=== PATIENT | female | born 1975 | race Caucasian/White ===

== ENCOUNTER 2016-10-20 06:34 | Emergency (ER) | payer OTHER ==
[2016-10-20 06:55] VITALS: BP 120/69; RESP 18; TEMP 98.9; O2SAT 100
--- NOTE | 2016-10-20 07:08 | ED PDOC ---
HPI: CCC, URI, Sore Throat Time Seen by Provider: 10/20/16 07:01 Chief Complaint (Nursing): Fever Chief Complaint (Provider): Fever History Per: Patient History/Exam Limitations: no limitations Onset/Duration Of Symptoms: Days (x1) Current Symptoms Are (Timing): Still Present Location Of Pain: Throat Associated Symptoms: Fever, Sore Throat, Cough. denies: Sputum Severity: Mild Additional Complaint(s): patient is a 41 year old female presenting to the ED complaining of fever since yesterday. Fever is associated with sore throat and non-productive cough. Patient reports she is able to swallow without difficulty. PMD: none Past Medical History Reviewed: Historical Data, Nursing Documentation, Vital Signs Vital Signs: Last Vital Signs Temp 98.9 F 10/20/16 08:04 Pulse 89 10/20/16 08:04 Resp 18 10/20/16 06:51 BP 120/69 10/20/16 06:51 Pulse Ox 100 10/20/16 08:04 - Medical History PMH: No Chronic Diseases - Surgical History Surgical History: No Surg Hx - Family History Family History: States: No Known Family Hx - Immunization History Hx Tetanus Toxoid Vaccination: No - Home Medications Home Medications: Ambulatory Orders Medication Instructions Recorded Naproxen [Naprosyn] 250 mg PO BID PRN #20 tab 03/09/15 Azithromycin [Zithromax] 250 mg PO DAILY #6 tab 10/20/16 - Allergies Allergies/Adverse Reactions: Allergies Allergy/AdvReac Type Severity Reaction Status Date / Time Penicillins Allergy ANAPHYLAXIS Verified 10/20/16 06:51 shellfish derived Allergy ANAPHYLAXIS Verified 10/20/16 06:51 Review of Systems ROS Statement: Except As Marked, All Systems Reviewed And Found Negative Constitutional: Positive for: Fever ENT: Positive for: Throat Pain Respiratory: Positive for: Cough. Negative for: Sputum Physical Exam - Reviewed Nursing Documentation Reviewed: Yes Vital Signs Reviewed: Yes - Physical Exam Appears: Positive for: Well, Non-toxic, No Acute Distress Head Exam: Positive for: ATRAUMATIC, NORMAL INSPECTION, NORMOCEPHALIC Skin: Positive for: Normal Color, Warm, DRY Eye Exam: Positive for: Normal appearance, EOMI ENT: Positive for: Pharyngeal Erythema, Tonsillar Swelling. Negative for: Tonsillar Exudate Neck: Positive for: Normal, Painless ROM, Supple Cardiovascular/Chest: Positive for: Regular Rate, Rhythm. Negative for: Gallop , Murmur Respiratory: Positive for: Normal Breath Sounds. Negative for: Accessory Muscle Use, Rhonchi, Respiratory Distress Extremity: Positive for: Normal ROM Neurologic/Psych: Positive for: Alert, Oriented - ECG O2 Sat by Pulse Oximetry: 100 (RA) Pulse Ox Interpretation: Normal Medical Decision Making Medical Decision Making: Time: 7:05 Impression: 41 y/o F w/ fever, sore throat, and cough Plan: Rapid Strep Group A Antigen Scribe Attestation: Documented by Sherie Marshall acting as a scribe for Kareem Corea MD. Scribe Attestation: All medical record entries made by the Scribe were at my direction and personally dictated by me. I have reviewed the chart and agree that the record accurately reflects my personal performance of the history, physical exam, medical decision making, and the department course for this patient. I have also personally directed, reviewed, and agree with the discharge instructions and disposition. Disposition - Clinical Impression Clinical Impression: Tonsillitis - Patient ED Disposition Is Patient to be Admitted: No - Disposition Referrals: [facility] [Outside] Disposition: Routine/Home Disposition Time: 07:10 Condition: FAIR Prescriptions: Azithromycin [Zithromax] 250 mg PO DAILY #6 tab Instructions: Tonsillitis (ED)
[2016-10-20 08:04] VITALS: PULSE 89
== END 2016-10-20 08:05 | disposition home or self-care (01) ==
LOC: H.ER 06:34
DX: J03.90 Acute tonsillitis, unspecified (principal); R05 Cough

== ENCOUNTER 2017-05-21 12:09 | Emergency (ER) | payer OTHER ==
[2017-05-21 12:53] VITALS: TEMP 98; O2SAT 100
--- NOTE | 2017-05-21 13:20 | ED PDOC ---
HPI: Female Pain Time Seen by Provider: 05/21/17 12:57 Chief Complaint (Nursing): Female Genitourinary Chief Complaint (Provider): Vaginal Bleeding History Per: Patient History/Exam Limitations: no limitations Onset/Duration Of Symptoms: Days (x 2 weeks) Current Symptoms Are (Timing): Still Present Additional Complaint(s): Eusebia is a 42 y/o female with a past medical history of hypertension who presents to the ED c/o vaginal bleeding for the past 2 weeks without stopping. Patient states her period is usually heavy but never this bad, and she is using 8-10 pads per day with associated cramps and weakness. She hasn't seen a senior clinical data analyst in 3 years and called someone today to be seen but they told her to come to the ER. Patient is having some lower abdominal discomfort but denies fever, chills, or urinary symptoms. PMD: Dr. Bales Abnormal Vaginal Bleeding: Yes Past Medical History Reviewed: Historical Data, Nursing Documentation, Vital Signs Vital Signs: Last Vital Signs Temp 98.0 F 05/21/17 12:47 Pulse 73 05/21/17 12:47 Resp 20 05/21/17 12:47 BP 146/68 05/21/17 12:47 Pulse Ox 100 05/21/17 12:47 - Medical History PMH: HTN - Surgical History Surgical History: - Family History Family History: States: No Known Family Hx - Social History Current smoker - smoking cessation education provided: No Ex-Smoker (has not smoked in the last 12 months): No Alcohol: None - Immunization History Hx Tetanus Toxoid Vaccination: No - Home Medications Home Medications: Ambulatory Orders Medication Instructions Recorded Naproxen [Naprosyn] 250 mg PO BID PRN #20 tab 03/09/15 Azithromycin [Zithromax] 250 mg PO DAILY #6 tab 10/20/16 Aspirin/Acetaminophen/Caffeine 1 each PO Q6 #30 tablet 03/07/17 [Excedrin Migraine Caplet] MedroxyPROGESTERone [Provera] 10 mg PO DAILY #10 tab 05/21/17 Naproxen [Naprosyn] 500 mg PO BID PRN #20 tablet 05/21/17 - Allergies Allergies/Adverse Reactions: Allergies Allergy/AdvReac Type Severity Reaction Status Date / Time Penicillins Allergy ANAPHYLAXIS Verified 05/21/17 12:46 shellfish derived Allergy ANAPHYLAXIS Verified 05/21/17 12:46 Review of Systems ROS Statement: Except As Marked, All Systems Reviewed And Found Negative Constitutional: Negative for: Fever, Chills Gastrointestinal: Positive for: Abdominal Pain (lower) Genitourinary Female: Positive for: Vaginal Bleeding. Negative for: Dysuria, Frequency, Incontinence, Hematuria Physical Exam - Reviewed Nursing Documentation Reviewed: Yes Vital Signs Reviewed: Yes - Physical Exam Appears: Positive for: Uncomfortable (mild-moderate) Pelvic Exam: Positive for: External Exam Normal (exam done with ERT: Delia), Active Bleeding (blood oozing continously from cervix os), Blood (noted on external genitalia), Tender Adnexa (mild bl), Tender Uterus Neurologic/Psych: Positive for: Alert, Oriented - Laboratory Results Result Diagrams: 05/21/17 14:00 05/21/17 14:00 - ECG O2 Sat by Pulse Oximetry: 100 (RA) Pulse Ox Interpretation: Normal Medical Decision Making Medical Decision Making: Time: 13:04 Initial Impression: Vaginal Bleeding; Rule out uterine fibroids, dysfunctional uterine bleeding Initial Plan: --CMP --CBC --PTT --Prothrombin Time --Toradol --Zofran --Urinalysis --US Pelvis --Urine Time: 16:04 US PELVIS FINDINGS: UTERUS: Measures 9.1 x 5.0 x 6.0 cm. Normal in size and anteverted appearance. No fibroid or other mass lesion seen. ENDOMETRIUM: Measures 4.3 mm in diameter. CERVIX: A incidental nabothian cyst measuring up to 9 mm is noted RIGHT OVARY: Measures 3.7 x 2.1 x 3.8 cm. No solid mass. Normal flow. LEFT OVARY: Measures 5.7 x 3.5 x 5.7 cm. No solid mass. Normal flow. A 4.8 x 3.2 x 4.5 cm left ovarian simple appearing cyst is noted. FREE FLUID: Small amount of free fluid in the cul-de-sac is noted OTHER FINDINGS: None. IMPRESSION: Left ovarian simple appearing cyst measuring up to 4.8 cm. Consider follow-up pelvic ultrasound transvaginal technique in 4-6 weeks to reassess Incidental nabothian cysts. [ Addendum Report Added by Viktoriya Lemon at 05/21/2017 16:14:08 ] HISTORY: heavy vaginal bleeding for 2 weeks w/cramps COMPARISON: None available. TECHNIQUE: Transabdominal and transvaginal FINDINGS: UTERUS: Measures 9.5 x 5.9 x 4.9 cm. Normal in size and anteverted appearance. No fibroid or other mass lesion seen. ENDOMETRIUM: Measures 7.2 mm in diameter. This is still within normal limits for patient's menstrual status history CERVIX: No cervical abnormality identified. RIGHT OVARY: Measures 2.8 x 3.3 x 1.8 cm. No solid mass. Normal flow. LEFT OVARY: Measures 2.9 x 3.0 x 1.9 cm. No solid mass. Normal flow. FREE FLUID: No significant free fluid noted. OTHER FINDINGS: None. IMPRESSION: Unremarkable pelvic ultrasound. No submucosal fibroids or gross endometrial polyps noted. Overall endometrial thickness is within normal limits -- Scribe~Attestation: Documented by Cipriano Reyes, acting as a scribe for Anna Bradford MD. Provider Scribe~Attestation: All medical record entries made by the Scribe were at my direction and personally dictated by me. I have reviewed the chart and agree that the record accurately reflects my personal performance of the history, physical exam, medical decision making, and the department course for this patient. I have also personally directed, reviewed, and agree with the discharge instructions and disposition. Disposition - Clinical Impression Clinical Impression: DUB (dysfunctional uterine bleeding) - Patient ED Disposition Is Patient to be Admitted: No Doctor Will See Patient In The: Office Counseled Patient/Family Regarding: Diagnosis, Need For Followup, Rx Given - Disposition Referrals: Anoop Baig DO [Staff Provider] - Disposition: Routine/Home Disposition Time: 16:39 Condition: STABLE Prescriptions: MedroxyPROGESTERone [Provera] 10 mg PO DAILY #10 tab Naproxen [Naprosyn] 500 mg PO BID PRN #20 tablet PRN Reason: Pain, Moderate (4-7) Instructions: Dysfunctional Uterine Bleeding (ED) Forms: [facility] (Greek) - POA Present On Arrival: None
[2017-05-21 13:37] LABS: SQUAMOUS EPITHIAL 1 /hpf (0-5); URINE BACTERIA RARE (<OCC); URINE BILIRUBIN NEGATIVE (NEGATIVE); URINE BLOOD LARGE (NEGATIVE); URINE CLARITY CLOUDY (Clear); URINE COLOR YELLOW (YELLOW); URINE GLUCOSE (UA) NEG (Normal); URINE LEUKOCYTE ESTERASE NEG Leu/uL (Negative); URINE NITRATE NEGATIVE (NEGATIVE); URINE PROTEIN NEGATIVE (NEGATIVE); URINE UROBILINOGEN 0.2-1.0 mg/dL (0.2-1.0)
[2017-05-21 14:11] LABS: BASO # 0.1 K/uL (0.0-0.2); EOS # 0.1 K/uL (0.0-0.7); EOS % 1.2 % (0.0-4.0); HEMOGLOBIN 10.7 g/dL (12.0-16.0); LYMPH # 1.7 K/uL (1.0-4.3); MEAN CELL VOLUME 78.1 fl (81.0-99.0); MEAN CORPUSCULAR HEMOGLOBIN 25.4 pg (27.0-31.0); MEAN CORPUSCULAR HGB CONC 32.5 g/dL (33.0-37.0); MEAN PLATELET VOLUME 8.8 fl (7.2-11.7); MONO # 0.8 K/uL (0.0-0.8); MONO % 9.7 % (0.0-10.0); NEUT # 5.5 K/uL (1.8-7.0); NEUT % 67.1 % (50.0-75.0); NRBC % 0.1 % (0.0-0.0); RBC 4.22 Mil/uL (3.80-5.20); RED CELL DISTRIBUTION WIDTH 14.4 % (11.5-14.5); WHITE BLOOD COUNT 8.2 K/uL (4.8-10.8)
[2017-05-21 14:19] LABS: ALB/GLOB RATIO 1.1 (1.0-2.1); ALBUMIN 3.9 g/dL (3.5-5.0); ALT/SGPT 27 U/L (9-52); AST/SGOT 21 U/L (14-36); BLOOD UREA NITROGEN 14 mg/dl (7-17); CALCIUM 9.5 mg/dL (8.4-10.2); GFR AFRICAN-AMERICAN > 60; GFR NON-AFRICAN AMERICAN > 60
[2017-05-21 14:28] LABS: INR 0.9 (0.9-1.2); PARTIAL THROMBOPLASTIN TIME 29.7 Seconds (25.6-37.1); PROTHROMBIN TIME 10.9 Seconds (9.8-13.1)
--- NOTE | 2017-05-21 16:06 | US ---
HISTORY: heavy vaginal bleeding for 2 weeks w/cramps COMPARISON: None available. TECHNIQUE: Transabdominal and transvaginal FINDINGS: UTERUS: Measures 9.5 x 5.9 x 4.9 cm. Normal in size and anteverted appearance. No fibroid or other mass lesion seen. ENDOMETRIUM: Measures 7.2 mm in diameter. This is still within normal limits for patient's menstrual status history CERVIX: No cervical abnormality identified. RIGHT OVARY: Measures 2.8 x 3.3 x 1.8 cm. No solid mass. Normal flow. LEFT OVARY: Measures 2.9 x 3.0 x 1.9 cm. No solid mass. Normal flow. FREE FLUID: No significant free fluid noted. OTHER FINDINGS: None. IMPRESSION: Unremarkable pelvic ultrasound. No submucosal fibroids or gross endometrial polyps noted. Overall endometrial thickness is within normal limits
[2017-05-21 17:21] VITALS: BP 132/70; PULSE 70; RESP 16
== END 2017-05-21 17:21 | disposition home or self-care (01) ==
LOC: H.ER 12:09
DX: N93.8 Other specified abnormal uterine and vaginal bleeding (principal); I10 Essential (primary) hypertension; N88.8 Other specified noninflammatory disorders of cervix uteri; Z79.82 Long term (current) use of aspirin; Z88.0 Allergy status to penicillin
CPT/HCPCS: 76856; 80053; 81003; 81025; 85025; 85610; 85730; 96374; 99283; J1885

== ENCOUNTER 2018-06-09 01:19 | Emergency (ER) | payer SELFPAY ==
[2018-06-09 01:45] VITALS: BMI 27.4
--- NOTE | 2018-06-09 02:08 | ED PDOC ---
HPI: Wound Care - HPI Time Seen by Provider: 06/09/18 01:49 Chief Complaint (Nursing): ENT Problem Chief Complaint (Provider): laceration History Per: Patient History Of Present Illness: 43 y/o female presents for evaluation of laceration to left ear sustained one hour ago. Patient states she accidentally brushed against hook sticking out from wall. Denies headache, ear pain/drainage, hearing changes. Tetanus up to date (last year as per patient) Past Medical History Reviewed: Historical Data, Nursing Documentation, Vital Signs Vital Signs: Last Vital Signs Temp 98.4 F 06/09/18 01:45 Pulse 126 H 06/09/18 01:45 Resp 18 06/09/18 01:45 BP 172/98 H 06/09/18 01:45 Pulse Ox 99 06/09/18 01:45 - Medical History PMH: HTN - Surgical History Surgical History: - Family History Family History: States: Unknown Family Hx - Immunization History Hx Tetanus Toxoid Vaccination: No - Home Medications Home Medications: Ambulatory Orders Medication Instructions Recorded Naproxen [Naprosyn] 250 mg PO BID PRN #20 tab 03/09/15 Azithromycin [Zithromax] 250 mg PO DAILY #6 tab 10/20/16 Aspirin/Acetaminophen/Caffeine 1 each PO Q6 #30 tablet 03/07/17 [Excedrin Migraine Caplet] MedroxyPROGESTERone [Provera] 10 mg PO DAILY #10 tab 05/21/17 Naproxen [Naprosyn] 500 mg PO BID PRN #20 tablet 05/21/17 - Allergies Allergies/Adverse Reactions: Allergies Allergy/AdvReac Type Severity Reaction Status Date / Time Penicillins Allergy ANAPHYLAXIS Verified 06/09/18 01:44 shellfish derived Allergy ANAPHYLAXIS Verified 06/09/18 01:44 Review of Systems ROS Statement: Except As Marked, All Systems Reviewed And Found Negative ENT: Positive for: Ear Pain Physical Exam - Reviewed Nursing Documentation Reviewed: Yes Vital Signs Reviewed: Yes - Physical Exam Appears: Positive for: Well, Non-toxic, No Acute Distress Head Exam: Positive for: ATRAUMATIC, NORMAL INSPECTION, NORMOCEPHALIC Skin: Positive for: Normal Color ENT: Positive for: TM Is/Are (clear bilaterally), Other (0.5cm laceration along line where posterior auricle meets temportal bone; no active bleeding, edema, or tenderness noted) Cardiovascular/Chest: Positive for: Regular Rate, Rhythm Respiratory: Positive for: Normal Breath Sounds Neurologic/Psych: Positive for: Alert, Oriented (x3) - ECG O2 Sat by Pulse Oximetry: 99 - Progress ED Course And Treament: -Tylenol PO -wound care Procedure: Wound Repair - Time Performed Time Performed: 02:00 - Time Out Time Out: Side verified, Site verified, Patient ID confirmed - Consent Obtained Consent obtained: Verbal - Performed by Performed by: Mid-level Provider - Location Location:: Left (left posterior ear) Shape:: Linear Dimensions Length cm: 1cm Dimensions width cm: 0.1cm Depth:: Epidermis - Wound repair method [place]:: Tissue glue, Steri-strips - Muscle repiar layer closed with Muscle repair layer closed with:: Wound well approximated - Patient tolerated procedure Patient Tolerated Procedure:: Well Medical Decision Making Medical Decision Making: Patient educated on wound care, discharged with instructions to follow up with PMD within 2-3 days Return precautions given Disposition - Clinical Impression Clinical Impression: Laceration of ear - Patient ED Disposition Is Patient to be Admitted: No Counseled Patient/Family Regarding: Diagnosis, Need For Followup - Disposition Disposition: Routine/Home Disposition Time: 03:30 Condition: IMPROVED Instructions: Laceration Repair With Glue (DC) Forms: [employer] (German)
[2018-06-09 03:40] VITALS: BP 135/84; PULSE 80; RESP 16; TEMP 97.9
[2018-06-09 03:46] VITALS: O2SAT 99
== END 2018-06-09 03:43 | disposition home or self-care (01) ==
LOC: H.ER 01:19
DX: S01.312A Laceration without foreign body of left ear, initial encounter (principal); I10 Essential (primary) hypertension; Z88.0 Allergy status to penicillin; Z79.82 Long term (current) use of aspirin; W22.09XA Striking against other stationary object, initial encounter